=== PATIENT | male | born 1945 | race African-American/Black ===

== ENCOUNTER → 2017-07-08 14:40 | Outpatient (CLI) | payer MEDICARE | END | disposition home or self-care (01) | LOC: D.US 14:40 | DX: C61 Malignant neoplasm of prostate (principal) ==

== ENCOUNTER 2018-07-22 11:08 | Inpatient (IN) | payer MEDICARE, MEDICAID ==
[~2018-07-22] VITALS: Ht 167.6 cm; Wt 46.5 kg
--- NOTE | ~2018-07-22 | HEMODYNAMI ---
PATIENT:KEV WANG MEDICAL RECORD: [id number] : 41 LOCATION:[place] [address] ADMISSION DATE: 07/22/18 Generatedon:07/30/201817:27 Patient name: KEV WANG Patient #: [id number] SSN: : Date of study: 07/30/2018 Page: Of Hemodynamic Procedure Report Patient Data Patient Demographics Procedure consent was obtained First Name: KEV Gender: Male Last Name: KATHLEEN : 1945 Patient #: [id number] Age: 72 year(s) Race: Black Additional ID: [id number] Contact details [address]: [address] [place] [address] State: [place] City: [place] Zip code: [address] Past Medical History Allergies: No known allergies Admission Admission Data Admission Date: 07/22/2018 Admission Time: 14:37 Room #: [facility] Height (in.): 66 BSA: 1.49 (m2) Height (cm.): 167.64 BMI: 16.14 (kg/m2) Weight (lbs.): 100 Weight (kg.): 45.36 Procedure Procedure Types Cath Procedure Peripheral Cath Diagnostic Procedure Cath Peripheral Abd/Extremity Extremities Right Lower Ext Arterio Procedure Description Procedure Date Procedure Date: 07/30/2018 Procedure Start Time: 15:13 Procedure Staff Name Function Malachi Tellez MD Performing Physician Mel Barrera RT Bid Writer Ольга Saldaña RN Nurse Mikal Hobbs RT Scrub Procedure Data Cath Procedure Fluoroscopy Diagnostic fluoroscopy Total fluoroscopy Time: time: 17.1 min 17.1 min Diagnostic fluoroscopy Total fluoroscopy dose: 300 dose: 300 mGy mGy Contrast Material Contrast Material Type Amount (ml) Isovue 300 145 Entry Location Entry Primary Successful Side Size Upsize Upsize Entry Closure Succes sful Closure Location (Fr) 1 (Fr) 2 (Fr) Remarks Device Remarks Femoral Left Exoseal artery Procedure Medications Medication Administration Route Dosage Versed I.V. 1 mg Fentanyl I.V. 50 mcg Oxygen etCO2 Nasal cannula 3 l/min Heparin Flush Bag added to field 3 (1000units/500ml NS) Lidocaine 1% added to field 20 Versed I.V. 1 mg Fentanyl I.V. 50 mcg Heparin Bolus I.V. 5000 units Fentanyl I.V. 50 mcg Versed I.V. 1 mg Fentanyl I.V. 50 mcg Versed I.V. 1 mg Fentanyl I.V. 50 mcg Versed I.V. 1 mg Versed I.V. 1 mg Fentanyl I.V. 50 mcg Nitroglycerin IC/IA 200 mcg Nitroglycerin IC/IA 200 mcg Hemodynamics Rest BSA: 1.49 (m2) O2 Consumption: Estimated: 167 (ml/min) O2 Consumption indexed: E stimated:112.08 (ml/min/m) Heart Rate: 62 (bpm) Snapshots Pre Cath Intra NCS Post Cath Vital Signs Time Heart Resp SPO2 etCO2 NIBP (mmHg) Rhythm Pain Sedation Rate (ipm) (%) (mmHg) Status Level (bpm) 15:07:45 63 12 100 26.2 158/77(117) NSR 0 (11) 10(A) , No pain 15:11:32 60 14 100 27.7 150/77(116) NSR 0 (11) 9(A) , No pain 15:15:21 58 3 100 30 118/60(87) SB 0 (11) 9(A) , No pain 15:19:09 59 0 100 30 108/57(79) SB 0 (11) 8(A) , No pain 15:23:17 59 5 100 30 117/62(85) SB 0 (11) 8(A) , No pain 15:27:20 64 8 100 29.2 145/88(117) NSR 0 (11) 8(A) , No pain 15:31:26 76 9 100 24 149/94(125) NSR 0 (11) 8(A) , No pain 15:35:10 86 16 100 25.5 158/100(133) NSR 0 (11) 8(A) , No pain 15:38:55 105 16 100 10.5 165/92(137) ST 0 (11) 8(A) , No pain 15:43:07 104 15 98 19.5 164/97(135) ST 0 (11) 8(A) , No pain 15:46:52 77 4 100 29.2 142/83(114) NSR 0 (11) 8(A) , No pain 15:50:37 71 6 100 27.7 135/77(113) NSR 0 (11) 8(A) , No pain 15:54:41 71 5 99 29.2 142/80(112) NSR 0 (11) 8(A) , No pain 15:58:24 69 5 100 32.2 147/80(110) NSR 0 (11) 8(A) , No pain 16:02:30 68 4 100 30.7 131/76(103) NSR 0 (11) 8(A) , No pain 16:06:38 66 3 100 30 151/73(104) NSR 0 (11) 8(A) , No pain 16:10:23 69 3 100 33.8 124/69(99) NSR 0 (11) 8(A) , No pain 16:14:25 78 2 100 33 118/71(90) NSR 0 (11) 8(A) , No pain 16:18:08 76 3 100 21.7 111/66(85) NSR 0 (11) 8(A) , No pain 16:21:49 76 0 100 33 114/71(87) NSR 0 (11) 8(A) , No pain 16:25:35 76 2 100 33 138/83(109) NSR 0 (11) 8(A) , No pain 16:29:18 76 2 100 33 137/78(114) NSR 0 (11) 8(A) , No pain 16:33:20 89 3 100 30.7 144/90(112) NSR 0 (11) 8(A) , No pain 16:37:05 71 2 100 30.7 127/73(96) NSR 0 (11) 8(A) , No pain 16:41:07 74 2 100 31.5 134/76(102) NSR 0 (11) 8(A) , No pain 16:44:52 68 2 100 31.5 130/71(103) NSR 0 (11) 8(A) , No pain 16:49:20 81 2 100 34.5 155/84(114) NSR 0 (11) 8(A) , No pain 16:53:05 71 1 100 28.5 133/75(100) NSR 0 (11) 8(A) , No pain 16:56:49 83 2 96 29.2 103/71(83) NSR 0 (11) 8(A) , No pain 17:00:51 88 3 100 39 114/61(79) NSR 0 (11) 8(A) , No pain 17:04:32 100 4 99 38.3 110/68(87) ST 0 (11) 8(A) , No pain 17:08:11 113 4 98 35.2 115/84(97) ST 0 (11) 8(A) , No pain 17:11:52 100 4 100 33 97/72(85) ST 0 (11) 8(A) , No pain 17:15:35 97 5 100 33 102/57(83) ST 0 (11) 8(A) , No pain 17:19:31 92 5 100 32.3 104/76(91) ST 0 (11) 8(A) , No pain 17:23:12 86 8 100 0 109/70(88) ST 0 (11) 8(A) , No pain Medications Time Medication Route Dose Verified Delivered Reason Notes Effec tiveness by by 15:15:28 Versed I.V. 1 mg Malachi Rolon for Piotr Collado RN sedation sleeping @ 15:22:59 15:15:41 Fentanyl I.V. 50 Malachi Rolon for l y Piotr Cuevas RN sedation sleeping @ 15:22:55 15:15:58 Oxygen etCO2 3 Malachi Rolon Per Nasal l/min Piotr Tellez RN protocol cannula 15:16:17 Heparin Flush added 3 Malachi Hernandezine Per Bag to bages Piotr Tellez RN protocol (1000units/500ml field DENSON NS) 15:16:33 Lidocaine 1% added 20ml Malachi Ly Per to vial Rosalinda Tellez MD protocol field DENSON 15:41:59 Versed I.V. 1 mg Malachi Rolon for Piotr Freeman RN sedation intermittently MD @ 15:52:33 15:42:05 Fentanyl I.V. 50 Malachi Rolon for Dori g Piotr Cuevas RN sedation intermittently MD @ 15:52:36 15:50:44 Heparin Bolus I.V. 5000 Malachi Rolon Per units Piotr Tellez RN protocol 15:52:08 Fentanyl I.V. 50 Malachi Rolon for Dozin g Piotr Cuevas RN sedation intermittently MD @ 15:56:36 15:56:31 Versed I.V. 1 mg Malachi Rolon for Dozin g Piotr Tellez RN sedation intermittently MD @ 16:24:26 16:08:25 Fentanyl I.V. 50 Malachi Rolon for Mostl y Piotr Cuevas RN sedation sleeping @ 16:24:29 16:08:39 Versed I.V. 1 mg Malachi Rolon for Mostl y Piotr Tellez RN sedation sleeping @ 16:24:33 16:24:05 Fentanyl I.V. 50 Malachi Rolon for mcg Piotr Tellez RN sedation MD 16:24:13 Versed I.V. 1 mg Malachi Rolon for Piotr Tellez RN sedation MD 16:50:05 Versed I.V. 1 mg Malachi Rolon for l y Piotr Tellez RN sedation sleeping @ 17:09:27 16:50:12 Fentanyl I.V. 50 Malachi Rolon for Mostl y Piotr Cuevas RN sedation sleeping @ 17:09:21 17:00:24 Nitroglycerin 200 Malachi Ly Per IC/IA mcg Rosalinda Tellez MD protocol 17:03:23 Nitroglycerin 200 Malachi Ly Per IC/IA mcg Rosalinda Tellez MD protocol Procedure Log Time Note 14:36:46 Patient Height : 66 inches 14:36:52 Patient Weight : 100 lbs 14:39:12 Use device set IR Diagnostic 14:39:13 Tegaderm 4 x 4 (1626W) opened to sterile field. 14:39:14 Sterile Angiographic Pack opened to sterile field. 14:39:15 Bag Decanter (2001S) opened to sterile field. 14:39:16 ACIST Manifold (11447) opened to sterile field. 14:39:17 ACIST Hand Control (90237) opened to sterile field. 14:39:18 ACIST Syringe (52046) opened to sterile field. 14:40:11 TUBING Contrast Injection High Pressure (TXZ929Q) opened to sterile field. 14:41:07 DOC .035 wire (T86178) opened to sterile field. 14:41:08 SÁNCHEZ 260 wire (J98326) opened to sterile field. 14:41:09 Micropuncture VSI 4FR kit opened to sterile field. 14:41:10 SHEATH 5FR [place] (MKB871) opened to sterile field. 14:52:13 Ольга Saldaña RN sent for patient. Start room use. 14:52:25 Time tracking: Regular hours (M-F 7:00 - 5:00) 14:52:32 Plan of Care:Hemodynamics will remain stable., Cardiac rhythm will remain stable., Comfort level will be maintained., Respiratory function will remain adequate., Patient/ family verbilizes understanding of procedure., Procedure tolerated without complication., Recovers from procedure without complications.. 14:52:43 Patient received from [employer] to Alert and oriented. Tansferred to table in Supine position. 14:52:56 Correct patient and procedure confirmed by team. 14:52:58 Signed procedure consent form obtained from patient. 14:53:00 ECG and BP/O2 sat monitors applied to patient. 14:53:00 Full Disclosure recording started 14:53:02 - 14:53:06 H&P Date Dictated: 07/30/2018 Within 30 days and on chart.. 14:53:07 Pre-procedure instructions explained to patient. 14:53:08 Pre-op teaching completed and patient verbalized understanding. 14:53:10 Family unavailable. 14:53:13 Patient NPO since Midnight. 14:53:24 Patient allergic to No known allergies 14:59:03 SHEATH 6FR Destination (RSR01) opened to sterile field. 14:59:24 Angiodynamics Omniflush 5Fr 65cm ([id number]) opened to sterile field. 14:59:39 STOPCOCK 3-Way Large Bore (V51825) opened to sterile field. 15:00:06 Is patient on blood thinner?Yes 15:00:11 ACC The patient was administered the following blood thiners within the last 24 hours: ACCLovenox 15:00:46 Patient diabetic? No. 15:00:54 ----Pre-sedation anethsthesia assessment.---- 15:01:08 Previous problem with sedation/anesthesia? No ? 15:01:14 Snore? No 15:01:17 Sleep apnea? No 15:01:23 Deviated septum? No 15:01:25 Opens mouth fully? Yes 15:01:28 Sticks out tongue? Yes 15:01:33 Airway obstruction? No ? 15:01:39 Dentures? No ? 15:01:46 Pre procedure: right dorsailis pedis pulse Doppler 15:01:52 Pre procedure: left dorsailis pedis pulse Doppler 15:01:57 Pre procedure: right posterior tibial pulse Doppler 15:02:03 Pre procedure: left posterior tibial pulse Doppler 15:02:14 IV patent on arrival in right forearm with D5/.45%NaCl at KVO. 15:02:25 Left groin area was prepped with chlora-prep and draped in sterile fashion 15:06:42 Vital chart was started 15:06:44 Baseline sample Acquired. 15:06:53 Baseline sample Acquired. 15:10:40 Physician arrived 15:10:41 --------ALL STOP TIME OUT------ 15:10:42 Final Timeout: patient, procedure, and site verified with staff and physician. All members of the team are in agreement. 15:13:40 Procedure started. 15:13:46 Local anesthetic to left femerol artery with Lidocaine 1% by Malachi Tellez MD.INITIAL ACCESS ONLY 15:15:00 Arterial access obtained using ultrasound guidance. 15:15:28 Versed 1 mg I.V. was administered by Ольга Saldaña RN; for sedation; 15:15:41 Fentanyl 50 mcg I.V. was administered by Ольга Saldaña RN; for sedation; 15:15:58 Oxygen 3 l/min etCO2 Nasal cannula was administered by Ольга Saldaña RN; Per protocol; 15:16:13 Baseline sample Acquired. 15:16:17 Heparin Flush Bag (1000units/500ml NS) 3 bages added to field was administered by Ольга Saldaña RN; Per protocol; 15:16:33 Lidocaine 1% 20ml vial added to field was administered by Malachi Tellez MD; Per protocol; 15:22:55 Effectiveness of Fentanyl delivered @ 15:15:41 is: Mostly sleeping 15:22:59 Effectiveness of Versed delivered @ 15:15:28 is: Mostly sleeping 15:25:[address] STOPCOCK 1-Way Male Rotating (P98626) opened to sterile field. 15:30:40 GLIDE WIRE ANGLE 180cm (AO5720) opened to sterile field. 15:30:52 TORQUE DEVICE PLASTIC .038 ( TD01) opened to sterile field. 15:31:37 GLIDE CATHETER 5FR ANGLED 65cm (CG507) opened to sterile field. 15:41:59 Versed 1 mg I.V. was administered by Ольга Saldaña RN; for sedation; 15:42:05 Fentanyl 50 mcg I.V. was administered by Ольга Saldaña RN; for sedation; 15:49:37 GLIDE WIRE ANGLE 260cm (CW5014) opened to sterile field. 15:49:38 CXI SUPPORT .035 135 CM STR catheter (R45470) opened to sterile field. 15:50:44 Heparin Bolus 5000 units I.V. was administered by Ольга Saldaña RN; Per protocol; 15:52:08 Fentanyl 50 mcg I.V. was administered by Ольга Saldaña RN; for sedation; 15:52:33 Effectiveness of Versed delivered @ 15:41:59 is: Dozing intermittently 15:52:36 Effectiveness of Fentanyl delivered @ 15:42:05 is: Dozing intermittentl y 15:56:01 ROADRUNNER .035 260 glide wire (S48359) opened to sterile field. 15:56:31 Versed 1 mg I.V. was administered by Ольга Saldaña RN; for sedation; 15:56:36 Effectiveness of Fentanyl delivered @ 15:52:08 is: Dozing intermittentl y 15:59:28 Navicross Support Straight .035 150cm catheter (OK24615) opened to sterile field. 16:08:25 Fentanyl 50 mcg I.V. was administered by Ольга Saldaña RN; for sedation; 16:08:39 Versed 1 mg I.V. was administered by Ольга Saldaña RN; for sedation; 16:08:58 CHOICE PT Extra Support J 300cm guide wire (5749284N7) opened to steril e field. 16:09:10 SPIDER EMBOLIC PROTECTION DEVICE 3MM ([id number]) opened to sterile field. 16:14:35 [place] 1 Small Atherectomy catheter (H1S) opened to sterile field. 16:24:05 Fentanyl 50 mcg I.V. was administered by Ольга Saldaña RN; for sedation; 16:24:13 Versed 1 mg I.V. was administered by Ольга Saldaña RN; for sedation; 16:24:26 Effectiveness of Versed delivered @ 15:56:31 is: Dozing intermittently 16:24:29 Effectiveness of Fentanyl delivered @ 16:08:25 is: Mostly sleeping 16:24:33 Effectiveness of Versed delivered @ 16:08:39 is: Mostly sleeping 16:26:50 INFLATOR BasixTOUCH (NZ0716) opened to sterile field. 16:27:23 Inflate balloon Inflation number: 1 A IN.PACT Admiral 5 x 120 x 130 DCB Balloon ([id number]) was prepped and advanced across the Undefined1, then inflated to 0 MARLEY for 0:00 (min:sec). 16:32:45 Inflate balloon Inflation number: 1 A CHOCOLATE 3.0 x 120 x 150 balloon ([id number]) was prepped and advanced across the Undefined2, then inflated. 16:46:23 Inflate balloon Inflation number: 2 A IN.PACT Admiral 4 x 80 x 130 DCB Balloon ([id number]) was prepped and advanced across the Undefined2, then inflated. 16:48:17 [place] 6Fr sheath opened to sterile field. 16:50:05 Versed 1 mg I.V. was administered by Ольга Saldaña RN; for sedation; 16:50:12 Fentanyl 50 mcg I.V. was administered by Ольга Saldaña RN; for sedation; 17:00:24 Nitroglycerin IC/IA 200 mcg was administered by Malachi Tellez MD; Per protocol; 17:03:23 Nitroglycerin IC/IA 200 mcg was administered by Malachi Tellez MD; Per protocol; 17:09:21 Effectiveness of Fentanyl delivered @ 16:50:12 is: Mostly sleeping 17:09:27 Effectiveness of Versed delivered @ 16:50:05 is: Mostly sleeping 17:13:54 EXOSEAL 6Fr (EX600) opened to sterile field. 17:14:10 A sheath was inserted into the Left Femoral artery 17:14:10 Sheath removed intact; hemostasis achieved with Exoseal to the Left Femoral artery. 17:14:21 Procedure ended.(Physican Out) 17:15:12 Fluoroscopy time 17.10 minutes. 17:15:24 Contrast amount:Isovue 300 145ml. 17:15:27 Procedure and supply charges have been captured, reviewed, submitted an d are correct. 17:22:20 Fluoroscopy dose: 300 mGy 17:22:20 Flurop Dose total: 300 17:27:06 Report given to Med II. 17:27:38 Vital chart was stopped Intervention Summary Intervention Notes Time ActionType Lesion and Equipment Used Action# Pressure Duration Attributes 16:27:23 Inflate Undefined1 IN.PACT Admiral 5 1 0 00:00 balloon x 120 x 130 DCB Balloon ([id number]) 16:32:45 Inflate Undefined2 CHOCOLATE 3.0 x 1 0 00:00 balloon 120 x 150 balloon ([id number]) 16:46:23 Inflate Undefined2 IN.PACT Admiral 4 2 0 00:00 balloon x 80 x 130 DCB Balloon ([id number]) Device Usage Item Name Manufacture Quantity Catalog Number [facility] Part [facility] rent Minimal Lot# / Charge Number Stock Stock Serial# Code Tegaderm 4 x 4 3M 1 1626W [id number] [id number] 994 388 5 (1626W) Sterile Cardinal 1 [id number] 102576 998 544 5 Angiographic Pack Health Bag Decanter Microtek 1 2001S 638815 94336 989 270 5 () Medical Inc. ACIST Manifold Acist Medical 1 66222 339341 353380 990 939 5 (84618) Systems Inc ACIST Hand Acist Medical 1 15334 671821 740178 990 921 5 Control (56851) Systems Inc ACIST Syringe Acist Medical 1 22565 955275 887034 990 497 20 (07011) Systems Inc TUBING Contrast [facility] Medical 1 ATW944V 247174 818926 999 558 5 Injection High Pressure (BTO224H) DOC .035 wire Cook Medical 1 Q80626 044824 999 603 5 (B85751) SÁNCHEZ 260 wire [employer] Medical 1 I82261 520958 99028 999 686 5 1852616 (P24634) Micropuncture VSI VSI VASCULAR 1 7266V 511157 999 467 5 4FR kit SOLUTIONS SHEATH 5FR Terumo 1 XCV027 278475 431920 996 253 40 [place] (KTA191) SHEATH 6FR Terumo 1 RSR01 214533 88918 999 741 5 Destination (RSR01) Angiodynamics Angiodynamics 1 33943647 351523 531664 999 979 5 Omniflush 5Fr 65cm (33523385) STOPCOCK 3-Way [employer] 1 G72135 642995 5318 999 799 5 0138164 Large Bore (O47167) STOPCOCK 1-Way [employer] 1 U65993 106921 92007 999 977 5 [id number] Male Rotating (W71682) GLIDE WIRE ANGLE Terumo 1 KD3640 641550 901616 999 712 5 180cm (LQ8460) TORQUE DEVICE [place] 1 TD01 584223 266231 999 461 5 PLASTIC .038 ( Scientific TD01) GLIDE CATHETER Terumo 1 CG507 293770 999 808 5 5FR ANGLED 65cm (CG507) GLIDE WIRE ANGLE Terumo 1 UD8574 277153 979809 999 574 5 260cm (JO2729) CXI SUPPORT .035 [employer] 1 O91927 871577 741418 999 869 5 [id number] 135 CM STR catheter (H80619) ROADRUNNER .035 [employer] 1 L41342 464973 592761 999 859 5 7396541 260 glide wire (D12309) Navicross Support Terumo 1 YY01283 782069 647980 999 994 5 Straight .035 150cm catheter (XQ08788) CHOICE PT Extra [place] 1 [id number] 571815 689070 999 138 5 Support J 300cm Scientific guide wire ([id number]) SPIDER EMBOLIC Medtronic 1 [id number] 438945 999 986 5 PROTECTION DEVICE 3MM ([id number]) [place] 1 Small Medtronic 1 H1-S 799138 5612141 999 977 5 Atherectomy catheter (H1S) INFLATOR [facility] 1 CQ0181 134370 363716 999 869 5 BasixTOUCH (KZ1390) IN.PACT Admiral 5 Medtronic 1 [id number] 014167 491734 999 981 5 [id number] x 120 x 130 DCB Balloon ([id number]) CHOCOLATE 3.0 x Cardinal 1 [id number] O 742350 374467 999 995 5 [id number] 120 x 150 balloon [facility] [id number] ([id number]) [id number] IN.PACT Admiral 4 Medtronic 1 [id number] 752238 570445 999 990 5 [id number] x 80 x 130 DCB Balloon ([id number]) [facility] [place] 6Fr [facility] [place] 1 560742 159746 999 866 5 sheath EXOSEAL 6Fr Cardinal 1 EX600 444239 208229 997 607 10 (EX600) Health Signature Audit [place] Stage Time Signature Unsigned Intra-Procedure 07/30/2018 Mel Barrera 5:27:34 PM RT(R) [facility] [address] [place] [address]
[2018-07-22 12:12] LABS: BASOPHILS 0.3 % (0-2); EOSINOPHILS 1.7 % (0-7); HEMATOCRIT 31.1 % (42.0-54.0); IMMATURE GRANULOCYTES 0.2 % (0-5); LYMPHOCYTES 26.1 % (15-50); MCH 29.8 pg (26.0-34.0); MCHC 32.2 g/dL (31.0-37.0); MCV 92.6 fL (80.0-100.0); MEAN PLATELET VOLUME 9.6 fL (7.4-10.4); MONOCYTES 9.8 % (2-11); NEUTROPHILS 61.9 % (40-80); PLATELET COUNT 269 10x3/uL (130-400); RBC 3.36 10x6/uL (4.20-6.10); WBC 5.8 10x3/uL (4.8-10.8)
[2018-07-22 12:43] LABS: ALBUMIN 3.7 g/dL (3.4-5.0); ALKALINE PHOSPHATASE 54 U/L (46-116); ALT (SGPT) 12 U/L (10-68); CALC OSMOLALITY 288 mosm/kg (275-300); CALCIUM 8.7 mg/dL (8.5-10.1); CARBON DIOXIDE 24.2 mmol/L (21.0-32.0); CHLORIDE - SERUM 100 mmol/L (98-107); CREATININE - SERUM 2.5 mg/dL (0.6-1.3); GLUCOSE 87 mg/dL (74-106); POTASSIUM - SERUM 4.7 mmol/L (3.5-5.1); PROTEIN - SERUM 9.2 g/dL (6.4-8.2); SODIUM 137 mmol/L (136-145); TROPONIN-I < 0.017 ng/mL (0.000-0.060); UREA NITROGEN 58 mg/dL (7-18); eGFR NON AFRICAN AMERICAN 27 mL/min (90-120)
[2018-07-22 12:48] LABS: APTT 30.6 SECONDS (22.8-39.4); INR 0.96 (0.85-1.17); PROTIME 12.4 SECONDS (11.6-15.0)
[2018-07-22 13:49] VITALS: BP 110/88; BP 161/85
[2018-07-22 13:54] LABS: APPEARANCE HAZY (CLEAR); BACTERIA MODERATE /hpf (NONE SEEN); BILIRUBIN NEGATIVE (NEGATIVE); COLOR YELLOW (YELLOW); EPITHELIAL CELLS RARE /hpf (0-5); GLUCOSE NEGATIVE (NEGATIVE); KETONE NEGATIVE (NEGATIVE); MUCUS <1+ /lpf (NONE SEEN); NITRITE POSITIVE (NEGATIVE); PROTEIN TRACE mg/dL (NEGATIVE); RED CELLS - URINE OCC /hpf (0-5); SPECIFIC GRAVITY 1.005 (1.005-1.020); UROBILINOGEN NORMAL (NORMAL); WHITE CELLS - URINE 25-50 /hpf (0-5)
[2018-07-22 14:40] VITALS: BP 168/79
[2018-07-22 16:25] VITALS: BP 164/74; BMI 16.0
[2018-07-22] MEDS ORDERED: NORVASC10 MG PO (17:29)
[2018-07-22 20:00] VITALS: BP 130/77
[2018-07-23 04:00] VITALS: BP 154/96
[2018-07-23 07:03] LABS: BASOPHILS 0.2 % (0-2); EOSINOPHILS 2.9 % (0-7); HEMATOCRIT 32.2 % (42.0-54.0); HEMOGLOBIN 10.2 g/dL (13.5-17.5); IMMATURE GRANULOCYTES 0.2 % (0-5); LYMPHOCYTES 22.7 % (15-50); MCH 29.1 pg (26.0-34.0); MCHC 31.7 g/dL (31.0-37.0); MEAN PLATELET VOLUME 10.1 fL (7.4-10.4); MONOCYTES 16.8 % (2-11); NEUTROPHILS 57.2 % (40-80); PLATELET COUNT 277 10x3/uL (130-400); RDW 15.1 % (11.5-14.5); WBC 4.8 10x3/uL (4.8-10.8)
[2018-07-23 07:18] LABS: ALBUMIN 3.3 g/dL (3.4-5.0); ANION GAP 13.3 mmol/L (8-16); BILIRUBIN - TOTAL 0.33 mg/dL (0.2-1.3); CALCIUM 8.5 mg/dL (8.5-10.1); CARBON DIOXIDE 26.5 mmol/L (21.0-32.0); POTASSIUM - SERUM 4.8 mmol/L (3.5-5.1); PROTEIN - SERUM 8.5 g/dL (6.4-8.2)
[2018-07-23 08:51] VITALS: BP 176/60
[2018-07-23 11:32] VITALS: BP 151/75
[2018-07-23 13:24] VITALS: BMI 16.0
[2018-07-23] MEDS ORDERED: HYDROCHLOROTHIA25 MG PO (15:41)
[2018-07-23] MEDS ORDERED: HYDROCODON-ACE1 EAC7 PO (15:42)
[2018-07-23] MEDS ORDERED: ZESTORETIC 10/11 TAB PO (15:43)
[2018-07-23 16:03] VITALS: BP 106/53
[2018-07-23 19:05] LABS: % SATURATION 32 % (15-55); IRON 51 ug/dl (35-150); TOTAL IRON BIND CAPACITY 156 ug/dl (260-445); UNSAT IRON BIND CAPACITY 105 ug/dl (150-375)
[2018-07-23 20:00] VITALS: BP 86/53
[2018-07-24 04:00] VITALS: BP 98/80
[2018-07-24 07:28] LABS: ANION GAP 14.2 mmol/L (8-16); CALCIUM 8.1 mg/dL (8.5-10.1); CREATININE - SERUM 2.1 mg/dL (0.6-1.3); POTASSIUM - SERUM 4.2 mmol/L (3.5-5.1)
[2018-07-24 07:46] LABS: BASOPHILS 0.5 % (0-2); EOSINOPHILS 3.7 % (0-7); HEMATOCRIT 28.6 % (42.0-54.0); HEMOGLOBIN 9.1 g/dL (13.5-17.5); MCH 29.3 pg (26.0-34.0); MCHC 31.8 g/dL (31.0-37.0); MEAN PLATELET VOLUME 9.9 fL (7.4-10.4); MONOCYTES 17.9 % (2-11); NEUTROPHILS 49.9 % (40-80); RBC 3.11 10x6/uL (4.20-6.10); RDW 15.1 % (11.5-14.5)
[2018-07-24 07:50] LABS: PLATELET COUNT 214 10x3/uL (130-400); WBC 6.5 10x3/uL (4.8-10.8)
[2018-07-24 08:13] VITALS: BP 122/62
[2018-07-24 11:52] VITALS: BP 148/64
[2018-07-24 16:29] VITALS: BP 89/50
[2018-07-24 21:36] VITALS: Ht 167.6 cm; Wt 46.5 kg
[2018-07-24 22:28] VITALS: BP 79/43
[2018-07-25 00:41] VITALS: BP 81/42
[2018-07-25 05:44] VITALS: BP 92/47
[2018-07-25 06:28] LABS: BASOPHILS 0.2 % (0-2); EOSINOPHILS 3.2 % (0-7); HEMATOCRIT 26.1 % (42.0-54.0); HEMOGLOBIN 8.2 g/dL (13.5-17.5); LYMPHOCYTES 29.9 % (15-50); MCH 28.9 pg (26.0-34.0); MCHC 31.4 g/dL (31.0-37.0); MCV 91.9 fL (80.0-100.0); MEAN PLATELET VOLUME 9.9 fL (7.4-10.4); MONOCYTES 12.9 % (2-11); NEUTROPHILS 53.8 % (40-80); PLATELET COUNT 209 10x3/uL (130-400); RBC 2.84 10x6/uL (4.20-6.10); RDW 14.8 % (11.5-14.5); WBC 6.3 10x3/uL (4.8-10.8)
[2018-07-25 06:33] LABS: ANION GAP 10.6 mmol/L (8-16); CALCIUM 7.4 mg/dL (8.5-10.1); CARBON DIOXIDE 24.9 mmol/L (21.0-32.0); CREATININE - SERUM 2.5 mg/dL (0.6-1.3); POTASSIUM - SERUM 4.5 mmol/L (3.5-5.1)
[2018-07-25 08:50] VITALS: BP 133/67
[2018-07-25 09:18] LABS: FOLATE (FOLIC ACID) - SERUM 12.8 ng/mL (>3.0)
[2018-07-25 13:04] VITALS: BP 103/45
[2018-07-25 16:55] VITALS: BP 101/46
[2018-07-25 21:22] VITALS: BP 107/53
[2018-07-26 01:07] VITALS: BP 105/51
[2018-07-26 05:13] VITALS: BP 103/46
[2018-07-26 06:01] LABS: BASOPHILS 0.1 % (0-2); EOSINOPHILS 2.7 % (0-7); HEMATOCRIT 27.3 % (42.0-54.0); HEMOGLOBIN 8.7 g/dL (13.5-17.5); IMMATURE GRANULOCYTES 0.2 % (0-5); LYMPHOCYTES 20.8 % (15-50); MCH 29.5 pg (26.0-34.0); MCHC 31.9 g/dL (31.0-37.0); MCV 92.5 fL (80.0-100.0); MEAN PLATELET VOLUME 10.1 fL (7.4-10.4); MONOCYTES 8.3 % (2-11); NEUTROPHILS 67.9 % (40-80); PLATELET COUNT 221 10x3/uL (130-400); RBC 2.95 10x6/uL (4.20-6.10); RDW 15.2 % (11.5-14.5)
[2018-07-26 06:07] LABS: WBC 8.9 10x3/uL (4.8-10.8)
[2018-07-26 06:19] LABS: ANION GAP 10.8 mmol/L (8-16); CALCIUM 7.3 mg/dL (8.5-10.1); CARBON DIOXIDE 24.4 mmol/L (21.0-32.0); CREATININE - SERUM 2.3 mg/dL (0.6-1.3); POTASSIUM - SERUM 4.2 mmol/L (3.5-5.1)
[2018-07-26 09:45] VITALS: BP 123/62
[2018-07-26 12:52] VITALS: BP 101/38
[2018-07-26 16:40] VITALS: BP 111/54
[2018-07-26 21:20] VITALS: BP 96/46
[2018-07-27 02:00] VITALS: BP 103/51
[2018-07-27 06:00] VITALS: BP 118/54
[2018-07-27 06:57] LABS: BASOPHILS 0.4 % (0-2); EOSINOPHILS 2.7 % (0-7); HEMATOCRIT 28.9 % (42.0-54.0); HEMOGLOBIN 9.1 g/dL (13.5-17.5); IMMATURE GRANULOCYTES 0.2 % (0-5); LYMPHOCYTES 16.8 % (15-50); MCH 29.4 pg (26.0-34.0); MCHC 31.5 g/dL (31.0-37.0); MCV 93.2 fL (80.0-100.0); MEAN PLATELET VOLUME 10.1 fL (7.4-10.4); MONOCYTES 11.7 % (2-11); NEUTROPHILS 68.2 % (40-80); PLATELET COUNT 241 10x3/uL (130-400); RDW 15.3 % (11.5-14.5); WBC 10.8 10x3/uL (4.8-10.8)
[2018-07-27 07:46] LABS: ANION GAP 13.2 mmol/L (8-16); CALCIUM 7.2 mg/dL (8.5-10.1); CARBON DIOXIDE 23.3 mmol/L (21.0-32.0); CREATININE - SERUM 2.1 mg/dL (0.6-1.3); POTASSIUM - SERUM 4.5 mmol/L (3.5-5.1); VANCOMYCIN - RANDOM 42.9 ug/mL (10.0-20.0)
[2018-07-27 08:00] VITALS: BP 138/57
[2018-07-27 17:16] VITALS: BP 105/52
[2018-07-27 20:00] VITALS: BP 129/73
[2018-07-28] VITALS: BP 151/68
[2018-07-28 04:00] VITALS: BP 136/76
[2018-07-28 05:03] LABS: BASOPHILS 0.1 % (0-2); EOSINOPHILS 3.1 % (0-7); HEMATOCRIT 27.6 % (42.0-54.0); HEMOGLOBIN 8.7 g/dL (13.5-17.5); IMMATURE GRANULOCYTES 0.4 % (0-5); LYMPHOCYTES 24.4 % (15-50); MCH 29.1 pg (26.0-34.0); MCHC 31.5 g/dL (31.0-37.0); MCV 92.3 fL (80.0-100.0); MONOCYTES 8.7 % (2-11); NEUTROPHILS 63.3 % (40-80); RBC 2.99 10x6/uL (4.20-6.10); RDW 15.5 % (11.5-14.5); WBC 8.5 10x3/uL (4.8-10.8)
[2018-07-28 05:07] LABS: PLATELET COUNT 294 10x3/uL (130-400)
[2018-07-28 05:19] LABS: ANION GAP 13.5 mmol/L (8-16); CARBON DIOXIDE 23.5 mmol/L (21.0-32.0); CREATININE - SERUM 1.8 mg/dL (0.6-1.3)
[2018-07-28 05:27] LABS: CALCIUM 6.8 mg/dL (8.5-10.1)
[2018-07-28 07:49] VITALS: BP 149/66
[2018-07-28 11:27] VITALS: BP 103/57
[2018-07-28] MEDS ORDERED: ZOSYN 3.3753.375 G1 IV (14:42)
[2018-07-28] MEDS ORDERED: VANCOMYCIN 1 GM/1 G1 IV (14:42)
[2018-07-28] MEDS ORDERED: LOVENOX60 MG/0.6 SC (14:43)
[2018-07-28] MEDS ORDERED: FLORAJEN3 CAPS460 MG PO (14:43)
[2018-07-28] MEDS ORDERED: Levaquin PREMIX IV (14:45)
[2018-07-28] MEDS ORDERED: PEPCID20 MG PO (14:45)
[2018-07-28 15:23] VITALS: BP 116/69
[2018-07-28 20:04] VITALS: BP 150/69
[2018-07-29 04:00] VITALS: BP 136/69
[2018-07-29 08:13] LABS: BASOPHILS 0.2 % (0-2); EOSINOPHILS 3.6 % (0-7); IMMATURE GRANULOCYTES 0.2 % (0-5); LYMPHOCYTES 22.6 % (15-50); MCH 29.4 pg (26.0-34.0); MCV 91.9 fL (80.0-100.0); MEAN PLATELET VOLUME 9.8 fL (7.4-10.4); MONOCYTES 12.2 % (2-11); NEUTROPHILS 61.2 % (40-80); PLATELET COUNT 317 10x3/uL (130-400); RBC 2.72 10x6/uL (4.20-6.10); RDW 15.3 % (11.5-14.5)
[2018-07-29 08:18] LABS: ANION GAP 14.9 mmol/L (8-16); CARBON DIOXIDE 22.6 mmol/L (21.0-32.0); CREATININE - SERUM 1.8 mg/dL (0.6-1.3); POTASSIUM - SERUM 4.5 mmol/L (3.5-5.1)
[2018-07-29 08:22] LABS: APTT 33.2 SECONDS (22.8-39.4); INR 1.03 (0.85-1.17); PROTIME 13.1 SECONDS (11.6-15.0)
[2018-07-29 08:30] LABS: CALCIUM 6.6 mg/dL (8.5-10.1)
[2018-07-29 09:11] VITALS: BP 163/74
[2018-07-29 11:00] VITALS: BP 148/65
[2018-07-29 15:50] VITALS: BP 120/75
[2018-07-29 20:14] VITALS: BP 163/73
[2018-07-30] VITALS (7 sets, daily range): BP systolic 107–155; BP diastolic 52–85
[2018-07-30 06:24] LABS: BASOPHILS 0.2 % (0-2); EOSINOPHILS 2.4 % (0-7); HEMATOCRIT 26.5 % (42.0-54.0); HEMOGLOBIN 8.5 g/dL (13.5-17.5); IMMATURE GRANULOCYTES 0.3 % (0-5); LYMPHOCYTES 14.9 % (15-50); MCH 29.6 pg (26.0-34.0); MCHC 32.1 g/dL (31.0-37.0); MCV 92.3 fL (80.0-100.0); MEAN PLATELET VOLUME 9.3 fL (7.4-10.4); MONOCYTES 8.9 % (2-11); NEUTROPHILS 73.3 % (40-80); PLATELET COUNT 300 10x3/uL (130-400); RBC 2.87 10x6/uL (4.20-6.10); RDW 15.3 % (11.5-14.5)
[2018-07-30 06:30] LABS: WBC 11.5 10x3/uL (4.8-10.8)
[2018-07-30 06:34] LABS: APTT 33.1 SECONDS (22.8-39.4); INR 1.07 (0.85-1.17); PROTIME 13.6 SECONDS (11.6-15.0)
[2018-07-30 07:14] LABS: CARBON DIOXIDE 21.2 mmol/L (21.0-32.0); CREATININE - SERUM 1.7 mg/dL (0.6-1.3); POTASSIUM - SERUM 4.2 mmol/L (3.5-5.1); VANCOMYCIN - RANDOM 20.3 ug/mL (10.0-20.0)
[2018-07-30 07:17] LABS: CALCIUM 6.5 mg/dL (8.5-10.1)
[2018-07-31] VITALS: BP 109/56
[2018-07-31 04:00] VITALS: BP 120/63
[2018-07-31 07:46] VITALS: BP 122/60
[2018-07-31 11:26] VITALS: BP 124/66
[2018-07-31 13:21] LABS: BASOPHILS 0.1 % (0-2); EOSINOPHILS 3.6 % (0-7); HEMATOCRIT 23.6 % (42.0-54.0); IMMATURE GRANULOCYTES 0.2 % (0-5); LYMPHOCYTES 14.8 % (15-50); MCH 29.4 pg (26.0-34.0); MCHC 31.4 g/dL (31.0-37.0); MCV 93.7 fL (80.0-100.0); MEAN PLATELET VOLUME 9.3 fL (7.4-10.4); MONOCYTES 12.8 % (2-11); NEUTROPHILS 68.5 % (40-80); PLATELET COUNT 255 10x3/uL (130-400); RBC 2.52 10x6/uL (4.20-6.10); RDW 15.6 % (11.5-14.5); WBC 8.7 10x3/uL (4.8-10.8)
[2018-07-31 13:41] LABS: ALBUMIN 2.3 g/dL (3.4-5.0); ANION GAP 15.6 mmol/L (8-16); BILIRUBIN - TOTAL 0.28 mg/dL (0.2-1.3); CARBON DIOXIDE 20.3 mmol/L (21.0-32.0); CREATININE - SERUM 1.6 mg/dL (0.6-1.3); POTASSIUM - SERUM 3.9 mmol/L (3.5-5.1); PROTEIN - SERUM 6.6 g/dL (6.4-8.2)
[2018-07-31 13:43] LABS: CALCIUM 6.5 mg/dL (8.5-10.1)
[2018-07-31 13:45] LABS: HEMOGLOBIN 7.4 g/dL (13.5-17.5)
[2018-07-31 15:13] VITALS: BP 100/48
[2018-07-31 20:41] VITALS: BP 124/54
[2018-08-01 04:56] VITALS: BP 145/77
[2018-08-01 07:55] LABS: ALBUMIN 2.4 g/dL (3.4-5.0); ANION GAP 13.1 mmol/L (8-16); BILIRUBIN - TOTAL 0.84 mg/dL (0.2-1.3); CARBON DIOXIDE 21.2 mmol/L (21.0-32.0); CREATININE - SERUM 1.6 mg/dL (0.6-1.3); MAGNESIUM - SERUM 1.7 mg/dL (1.8-2.4); POTASSIUM - SERUM 4.3 mmol/L (3.5-5.1); PROTEIN - SERUM 7.2 g/dL (6.4-8.2); VANCOMYCIN - RANDOM 26.5 ug/mL (10.0-20.0)
[2018-08-01 08:32] LABS: HEMATOCRIT 30.5 % (42.0-54.0); HEMOGLOBIN 10.3 g/dL (13.5-17.5); LYMPHOCYTES 13.9 % (15-50); MCH 30.6 pg (26.0-34.0); MCHC 33.8 g/dL (31.0-37.0); MCV 90.5 fL (80.0-100.0); MEAN PLATELET VOLUME 9.3 fL (7.4-10.4); NEUTROPHILS 68.6 % (40-80); PLATELET COUNT 281 10x3/uL (130-400); RBC 3.37 10x6/uL (4.20-6.10); RDW 16.7 % (11.5-14.5); WBC 8.1 10x3/uL (4.8-10.8)
[2018-08-01 09:23] VITALS: BP 103/70
[2018-08-01 13:26] VITALS: BP 141/67
[2018-08-01 18:00] VITALS: BP 134/68
[2018-08-01 20:00] VITALS: BP 122/61
[2018-08-02 04:00] VITALS: BP 149/68
[2018-08-02 05:19] LABS: BASOPHILS 0.1 % (0-2); EOSINOPHILS 5.3 % (0-7); HEMATOCRIT 27.6 % (42.0-54.0); HEMOGLOBIN 9.1 g/dL (13.5-17.5); IMMATURE GRANULOCYTES 0.3 % (0-5); LYMPHOCYTES 12.8 % (15-50); MCH 29.5 pg (26.0-34.0); MCV 89.6 fL (80.0-100.0); MEAN PLATELET VOLUME 9.6 fL (7.4-10.4); MONOCYTES 13.7 % (2-11); NEUTROPHILS 67.8 % (40-80); PLATELET COUNT 287 10x3/uL (130-400); RBC 3.08 10x6/uL (4.20-6.10); RDW 15.9 % (11.5-14.5); WBC 6.8 10x3/uL (4.8-10.8)
[2018-08-02 05:45] LABS: ALBUMIN 2.2 g/dL (3.4-5.0); ANION GAP 14.7 mmol/L (8-16); BILIRUBIN - TOTAL 0.31 mg/dL (0.2-1.3); CARBON DIOXIDE 21.4 mmol/L (21.0-32.0); CREATININE - SERUM 1.8 mg/dL (0.6-1.3); MAGNESIUM - SERUM 1.6 mg/dL (1.8-2.4); POTASSIUM - SERUM 4.1 mmol/L (3.5-5.1); PROTEIN - SERUM 6.6 g/dL (6.4-8.2); VANCOMYCIN - RANDOM 17.9 ug/mL (10.0-20.0)
[2018-08-02 05:56] LABS: CALCIUM 6.4 mg/dL (8.5-10.1)
[2018-08-02 08:20] VITALS: BP 138/69
[2018-08-02 12:09] VITALS: BP 161/71
[2018-08-02 15:56] VITALS: BP 138/66
[2018-08-02 20:26] VITALS: BP 119/61
[2018-08-03 00:58] VITALS: BP 128/63
[2018-08-03 06:38] LABS: BASOPHILS 0.2 % (0-2); EOSINOPHILS 7.4 % (0-7); HEMATOCRIT 28.7 % (42.0-54.0); HEMOGLOBIN 9.5 g/dL (13.5-17.5); IMMATURE GRANULOCYTES 0.3 % (0-5); LYMPHOCYTES 16.3 % (15-50); MCH 29.3 pg (26.0-34.0); MCHC 33.1 g/dL (31.0-37.0); MCV 88.6 fL (80.0-100.0); MEAN PLATELET VOLUME 9.5 fL (7.4-10.4); NEUTROPHILS 53.8 % (40-80); PLATELET COUNT 276 10x3/uL (130-400); RBC 3.24 10x6/uL (4.20-6.10); RDW 15.8 % (11.5-14.5); WBC 5.8 10x3/uL (4.8-10.8)
[2018-08-03 06:51] VITALS: BP 145/69
[2018-08-03 07:06] LABS: ALBUMIN 2.1 g/dL (3.4-5.0); ANION GAP 14.7 mmol/L (8-16); BILIRUBIN - TOTAL 0.37 mg/dL (0.2-1.3); CREATININE - SERUM 1.7 mg/dL (0.6-1.3); MAGNESIUM - SERUM 1.7 mg/dL (1.8-2.4); POTASSIUM - SERUM 3.7 mmol/L (3.5-5.1); PROTEIN - SERUM 6.5 g/dL (6.4-8.2)
[2018-08-03 07:18] LABS: CALCIUM 6.1 mg/dL (8.5-10.1)
[2018-08-03 09:20] VITALS: BP 135/68
[2018-08-03 12:33] VITALS: BP 148/70
[2018-08-03 17:32] VITALS: BP 130/68
[2018-08-03 21:59] VITALS: BP 143/84
[2018-08-04 05:53] LABS: BASOPHILS 0.3 % (0-2); EOSINOPHILS 7.4 % (0-7); HEMATOCRIT 29.4 % (42.0-54.0); HEMOGLOBIN 9.7 g/dL (13.5-17.5); IMMATURE GRANULOCYTES 0.5 % (0-5); LYMPHOCYTES 18.4 % (15-50); MCH 29.5 pg (26.0-34.0); MCV 89.4 fL (80.0-100.0); MEAN PLATELET VOLUME 9.5 fL (7.4-10.4); MONOCYTES 12.4 % (2-11); PLATELET COUNT 274 10x3/uL (130-400); RBC 3.29 10x6/uL (4.20-6.10); RDW 15.8 % (11.5-14.5); WBC 6.4 10x3/uL (4.8-10.8)
[2018-08-04 06:39] LABS: ALBUMIN 2.1 g/dL (3.4-5.0); ANION GAP 15.5 mmol/L (8-16); BILIRUBIN - TOTAL 0.33 mg/dL (0.2-1.3); CARBON DIOXIDE 20.9 mmol/L (21.0-32.0); CREATININE - SERUM 1.5 mg/dL (0.6-1.3); MAGNESIUM - SERUM 1.6 mg/dL (1.8-2.4); POTASSIUM - SERUM 3.4 mmol/L (3.5-5.1); PROTEIN - SERUM 6.6 g/dL (6.4-8.2)
[2018-08-04 07:16] VITALS: BP 140/59
[2018-08-04 08:37] VITALS: BP 156/81
[2018-08-04 11:41] VITALS: BP 155/78
[2018-08-04 16:10] VITALS: BP 156/81
[2018-08-04 20:00] VITALS: BP 105/65
[2018-08-05 00:46] VITALS: BP 134/83
[2018-08-05 04:00] VITALS: BP 150/69
[2018-08-05 06:21] LABS: BASOPHILS 0.2 % (0-2); EOSINOPHILS 6.2 % (0-7); HEMATOCRIT 30.3 % (42.0-54.0); HEMOGLOBIN 10.4 g/dL (13.5-17.5); IMMATURE GRANULOCYTES 0.4 % (0-5); MCH 30.8 pg (26.0-34.0); MCHC 34.3 g/dL (31.0-37.0); MCV 89.6 fL (80.0-100.0); MEAN PLATELET VOLUME 9.7 fL (7.4-10.4); MONOCYTES 4.8 % (2-11); NEUTROPHILS 77.4 % (40-80); PLATELET COUNT 244 10x3/uL (130-400); RBC 3.38 10x6/uL (4.20-6.10); RDW 15.9 % (11.5-14.5)
[2018-08-05 06:36] LABS: WBC 8.4 10x3/uL (4.8-10.8)
[2018-08-05 07:02] LABS: ALBUMIN 2.2 g/dL (3.4-5.0); BILIRUBIN - TOTAL 0.36 mg/dL (0.2-1.3); CARBON DIOXIDE 22.5 mmol/L (21.0-32.0); MAGNESIUM - SERUM 1.9 mg/dL (1.8-2.4); POTASSIUM - SERUM 3.5 mmol/L (3.5-5.1); PROTEIN - SERUM 6.9 g/dL (6.4-8.2)
[2018-08-05 07:28] LABS: CREATININE - SERUM 1.9 mg/dL (0.6-1.3)
[2018-08-05 07:30] LABS: CALCIUM 6.2 mg/dL (8.5-10.1)
[2018-08-05 07:41] VITALS: BP 161/79
[2018-08-05 11:06] VITALS: BP 186/84
[2018-08-05 15:52] VITALS: BP 164/80
[2018-08-05 20:00] VITALS: BP 157/60
[2018-08-06 04:00] VITALS: BP 157/75
[2018-08-06 06:41] LABS: BASOPHILS 0.4 % (0-2); EOSINOPHILS 5.5 % (0-7); HEMATOCRIT 29.6 % (42.0-54.0); HEMOGLOBIN 9.7 g/dL (13.5-17.5); IMMATURE GRANULOCYTES 0.2 % (0-5); LYMPHOCYTES 12.3 % (15-50); MCH 29.3 pg (26.0-34.0); MCHC 32.8 g/dL (31.0-37.0); MCV 89.4 fL (80.0-100.0); MEAN PLATELET VOLUME 10.1 fL (7.4-10.4); NEUTROPHILS 76.6 % (40-80); RBC 3.31 10x6/uL (4.20-6.10); RDW 15.7 % (11.5-14.5); WBC 8.2 10x3/uL (4.8-10.8)
[2018-08-06 06:46] LABS: ANION GAP 12.7 mmol/L (8-16); CARBON DIOXIDE 22.6 mmol/L (21.0-32.0); CREATININE - SERUM 1.5 mg/dL (0.6-1.3); POTASSIUM - SERUM 3.3 mmol/L (3.5-5.1)
[2018-08-06 06:51] LABS: PLATELET COUNT 178 10x3/uL (130-400)
[2018-08-06 07:55] VITALS: BP 151/87
[2018-08-06 11:28] VITALS: BP 139/72
[2018-08-06 15:30] VITALS: BP 197/89
[2018-08-06 20:38] VITALS: BP 176/83
[2018-08-07 04:00] VITALS: BP 168/88
[2018-08-07 06:00] VITALS: BP 167/85
[2018-08-07 06:22] LABS: BASOPHILS 0.4 % (0-2); EOSINOPHILS 7.1 % (0-7); HEMATOCRIT 31.2 % (42.0-54.0); HEMOGLOBIN 10.4 g/dL (13.5-17.5); IMMATURE GRANULOCYTES 0.3 % (0-5); MCH 29.6 pg (26.0-34.0); MCHC 33.3 g/dL (31.0-37.0); MCV 88.9 fL (80.0-100.0); MEAN PLATELET VOLUME 10.3 fL (7.4-10.4); MONOCYTES 3.7 % (2-11); NEUTROPHILS 70.5 % (40-80); RBC 3.51 10x6/uL (4.20-6.10); RDW 15.9 % (11.5-14.5); WBC 7.7 10x3/uL (4.8-10.8)
[2018-08-07 06:42] LABS: ANION GAP 15.7 mmol/L (8-16); CARBON DIOXIDE 22.7 mmol/L (21.0-32.0); CREATININE - SERUM 1.4 mg/dL (0.6-1.3); POTASSIUM - SERUM 3.4 mmol/L (3.5-5.1)
[2018-08-07 06:50] LABS: PLATELET COUNT 136 10x3/uL (130-400)
[2018-08-07 06:54] LABS: CALCIUM 5.9 mg/dL (8.5-10.1)
[2018-08-07 17:42] VITALS: BP 160/88
[2018-08-07 20:00] VITALS: BP 122/35
[2018-08-08] VITALS: BP 163/80
[2018-08-08 04:00] VITALS: BP 171/92
[2018-08-08 06:10] LABS: BASOPHILS 0.3 % (0-2); EOSINOPHILS 7.2 % (0-7); HEMATOCRIT 30.2 % (42.0-54.0); HEMOGLOBIN 10.1 g/dL (13.5-17.5); IMMATURE GRANULOCYTES 0.2 % (0-5); LYMPHOCYTES 30.5 % (15-50); MCH 29.6 pg (26.0-34.0); MCHC 33.4 g/dL (31.0-37.0); MCV 88.6 fL (80.0-100.0); MEAN PLATELET VOLUME 10.2 fL (7.4-10.4); MONOCYTES 3.6 % (2-11); NEUTROPHILS 58.2 % (40-80); PLATELET COUNT 119 10x3/uL (130-400); RBC 3.41 10x6/uL (4.20-6.10); RDW 15.8 % (11.5-14.5); WBC 5.9 10x3/uL (4.8-10.8)
[2018-08-08 06:28] LABS: ANION GAP 14.4 mmol/L (8-16); C-REACTIVE PROTEIN 4.7 mg/dL (0.0-0.9); CARBON DIOXIDE 21.8 mmol/L (21.0-32.0); CREATININE - SERUM 1.6 mg/dL (0.6-1.3); POTASSIUM - SERUM 4.2 mmol/L (3.5-5.1)
[2018-08-08 07:07] LABS: ERYTHROCYTE SEDIMENTATION RATE 59 mm/hr (0-20)
[2018-08-08 07:15] LABS: CALCIUM 6.2 mg/dL (8.5-10.1)
[2018-08-08 07:40] VITALS: BP 166/89
[2018-08-08 12:36] VITALS: BP 182/92
[2018-08-08 16:02] VITALS: BP 191/96
[2018-08-08 20:00] VITALS: BP 165/85
[2018-08-09] VITALS: BP 165/87
[2018-08-09 04:00] VITALS: BP 158/83
[2018-08-09 07:17] LABS: BASOPHILS 0.3 % (0-2); EOSINOPHILS 7.4 % (0-7); HEMATOCRIT 30.9 % (42.0-54.0); HEMOGLOBIN 10.2 g/dL (13.5-17.5); IMMATURE GRANULOCYTES 0.2 % (0-5); LYMPHOCYTES 30.1 % (15-50); MCH 29.7 pg (26.0-34.0); MCV 89.8 fL (80.0-100.0); MEAN PLATELET VOLUME 10.5 fL (7.4-10.4); MONOCYTES 5.8 % (2-11); NEUTROPHILS 56.2 % (40-80); RBC 3.44 10x6/uL (4.20-6.10); RDW 15.9 % (11.5-14.5); WBC 6.4 10x3/uL (4.8-10.8)
[2018-08-09 07:20] LABS: PLATELET COUNT 160 10x3/uL (130-400)
[2018-08-09 07:39] LABS: ANION GAP 15.8 mmol/L (8-16); CARBON DIOXIDE 23.1 mmol/L (21.0-32.0); CREATININE - SERUM 1.4 mg/dL (0.6-1.3); POTASSIUM - SERUM 3.9 mmol/L (3.5-5.1)
[2018-08-09 09:28] VITALS: BP 172/86
[2018-08-09 12:58] VITALS: BP 166/86
[2018-08-09 20:00] VITALS: BP 131/75
[2018-08-10 04:00] VITALS: BP 140/70
[2018-08-10 06:26] LABS: BASOPHILS 0.3 % (0-2); EOSINOPHILS 5.5 % (0-7); HEMATOCRIT 29.1 % (42.0-54.0); HEMOGLOBIN 9.5 g/dL (13.5-17.5); IMMATURE GRANULOCYTES 0.3 % (0-5); LYMPHOCYTES 34.2 % (15-50); MCH 29.4 pg (26.0-34.0); MCHC 32.6 g/dL (31.0-37.0); MCV 90.1 fL (80.0-100.0); MEAN PLATELET VOLUME 10.3 fL (7.4-10.4); MONOCYTES 8.2 % (2-11); NEUTROPHILS 51.5 % (40-80); RBC 3.23 10x6/uL (4.20-6.10); RDW 15.6 % (11.5-14.5); WBC 7.1 10x3/uL (4.8-10.8)
[2018-08-10 06:31] LABS: PLATELET COUNT 202 10x3/uL (130-400)
[2018-08-10 06:46] LABS: ANION GAP 15.7 mmol/L (8-16); CARBON DIOXIDE 22.3 mmol/L (21.0-32.0); CREATININE - SERUM 1.2 mg/dL (0.6-1.3)
[2018-08-10 07:06] LABS: CALCIUM 5.9 mg/dL (8.5-10.1)
[2018-08-10 08:20] VITALS: BP 174/87
[2018-08-10 11:36] VITALS: BP 168/81
[2018-08-10 16:19] VITALS: BP 171/76
[2018-08-10 20:30] VITALS: BP 161/86
[2018-08-11 04:30] VITALS: BP 188/97
[2018-08-11 08:58] VITALS: BP 184/95
[2018-08-11 12:02] VITALS: BP 181/90
== END 2018-08-11 14:39 | DRG 252 ==
LOC: D.ER 11:08 → D.EDHOLD 14:37 → D.M2 14:37
PROVIDERS: Family Medicine; General Practice; Internal Medicine Nephrology; Podiatrist Foot & Ankle Surgery; Radiology Diagnostic Radiology; Student in an Organized Health Care Education/Training Program
PROC: 0Y6P0Z2 Detachment at Right 1st Toe, Mid, Open Approach (ICD-10-PCS; principal; 2018-07-29 07:00)
PROC: 047K3Z1 Dilation of Right Femoral Artery using Drug-Coated Balloon, Percutaneous Approach (ICD-10-PCS; 2018-07-30)
PROC: B41F1ZZ Fluoroscopy of Right Lower Extremity Arteries using Low Osmolar Contrast (ICD-10-PCS; 2018-07-30)
DX: I70.261 Atherosclerosis of native arteries of extremities with gangrene, right leg (principal); J18.9 Pneumonia, unspecified organism; M86.171 Other acute osteomyelitis, right ankle and foot; N17.9 Acute kidney failure, unspecified; C79.51 Secondary malignant neoplasm of bone; N39.0 Urinary tract infection, site not specified; I10 Essential (primary) hypertension; D50.9 Iron deficiency anemia, unspecified; C61 Malignant neoplasm of prostate; E83.51 Hypocalcemia; Z86.73 Personal history of transient ischemic attack (TIA), and cerebral infarction without residual deficits